=== PATIENT | male | born 1975 | race American Indian/Alaskan Native ===

== ENCOUNTER 2018-08-30 17:36 | Emergency (ER) | payer MEDICAID, OTHER ==
[2018-08-30] MEDS ORDERED: Albuterol-Ipratrop 3 mg / 0.5 (3 ml) UD ONE ×2 (17:59→18:00)
[2018-08-30] MEDS ORDERED: Albuterol-Ipratrop 3 mg / 0.5 (3 ml) UD INH STA (17:59)
--- NOTE | 2018-08-30 18:09 | ED PDOC ---
HPI: SOB/CHF/COPD Time Seen by Provider: 08/30/18 17:52 Chief Complaint (Nursing): Respiratory Distress Chief Complaint (Provider): Respiratory Distress History Per: Patient History/Exam Limitations: no limitations Onset/Duration Of Symptoms: Hrs (x1) Current Symptoms Are (Timing): Still Present Additional Complaint(s): 43 y/o male with a PMHx of Asthma presents to the ED for evaluation of shortness of breath, onset one hour prior to arrival. [place] shortness of breath and chest tightness consistent with prior asthma exacerbation. Patient states he does not have an albuterol pump because he ran out. Patient additionally reports of having a dry cough. Patient notes of having a URI two weeks ago of which symptoms have resolved. Patient states shortness of breath is typically triggered by bad wea ther and/or infection. Otherwise, patient denies any fever. PMD: NO PROVIDER Past Medical History Reviewed: Historical Data, Nursing Documentation, Vital Signs - Medical History PMH: Asthma, Back Problems, HTN Denies: Chronic Kidney Disease - Surgical History Surgical History: No Surg Hx - Family History Family History: States: Diabetes, Hypertension - Social History Current smoker - smoking cessation education provided: Yes Alcohol: None Drugs: Denies - Immunization History Hx Tetanus Toxoid Vaccination: No Hx Influenza Vaccination: No Hx Pneumococcal Vaccination: No - Home Medications Home Medications: Ambulatory Orders Medication Instructions Recorded Guaifen/Dextromethorphan/PE 1 each PO Q6 #20 tablet 04/12/18 [Mucinex Fast-Max Congest-Cough] Albuterol HFA [Ventolin HFA 90 2 puff IH BID #1 inhaler 08/30/18 mcg/actuation (8 g)] Azithromycin 1 tab PO DAILY #4 tab 08/30/18 amLODIPine [Norvasc] 5 mg PO DAILY #30 tab 08/30/18 - Allergies Allergies/Adverse Reactions: Allergies Allergy/AdvReac Type Severity Reaction Status Date / Time acetaminophen Allergy Intermediate RASH Verified 08/22/18 16:13 aspirin Allergy RASH Verified 08/22/18 16:13 ibuprofen Allergy RASH Verified 08/22/18 16:13 Review of Systems ROS Statement: Except As Marked, All Systems Reviewed And Found Negative ( PER HPI) Constitutional: Negative for: Fever Respiratory: Positive for: Cough, Shortness of Breath Physical Exam - Reviewed Nursing Documentation Reviewed: Yes Vital Signs Reviewed: Yes - Physical Exam Appears: Positive for: Non-toxic, In Acute Distress (Mild respiratory distress) Head Exam: Positive for: ATRAUMATIC, NORMOCEPHALIC Skin: Positive for: Warm, Dry Eye Exam: Positive for: EOMI, PERRL ENT: Negative for: Pharyngeal Erythema, Tonsillar Exudate Neck: Positive for: Painless ROM, Supple Cardiovascular/Chest: Positive for: Regular Rate, Rhythm. Negative for: Murmur Respiratory: Positive for: Wheezing (Diffuse expiratory wheeze but good air movement ). Negative for: Accessory Muscle Use, Rales Gastrointestinal/Abdominal: Positive for: Soft. Negative for: Tenderness Back: Positive for: Normal Inspection. Negative for: Decreased ROM Extremity: Positive for: Normal ROM. Negative for: Deformity Lymphatic: Negative for: Adenopathy Neurologic/Psych: Positive for: Alert. Negative for: Motor/Sensory Deficits - Laboratory Results Result Diagrams: 08/30/18 18:10 08/30/18 18:10 - ECG ECG Rhythm: Positive for: Normal QRS, Normal ST Segment, Sinus Rhythm Rate: 85 Medical Decision Making Medical Decision Making: Time: 1759 Impression: Asthma Exacerbation Plan: -- EKG -- CMP -- Troponin I -- CBC with Differentials -- CXR Portable -- Duoneb 3mg/0.5mg 3ml (UD) 9ml INH -- IV Insertion -- Peak Flow Pre/Post Tx -- Influenza A B Accession No. : [id number] Patient Name / ID : BASSAM CAMARGO / [id number] Exam Date : 08/30/2018 17:52:06 ( Approved ) Study Comment : Sex / Age : M / 43Y Creator : Adrian Donahue MD Dictator : Adrian Donahue MD Hydrogen Treater : Tests Superintendent : Adrian Donahue MD Approver2 : Report Date : 08/30/2018 18:23:55 My Comment : Date of service: 08/30/2018 HISTORY: sob coughq COMPARISON: Chest radiograph dated 08/05/2016 FINDINGS: LUNGS: Left lower lung opacity.. PLEURA: No significant pleural effusion identified, no pneumothorax apparent. CARDIOVASCULAR: No aortic atherosclerotic calcification present. Normal cardiac size. No pulmonary vascular congestion. OSSEOUS STRUCTURES: No significant abnormalities. VISUALIZED UPPER ABDOMEN: Normal. OTHER FINDINGS: None. IMPRESSION: Left lower lung infiltrate. 7p On reeval pt is sleeping comfortably in no distress with normal O2 sat. Labs demonstrate no clinical abnormalities. Stable for dc. Dose of antiobiotic given in ER. Scribe Attestation: Documented by Dinesh Plunkett, acting as a scribe for Alexa Bhatia MD. Provider Scribe Attestation: All medical record entries made by the Scribe were at my direction and personally dictated by me. I have reviewed the chart and agree that the record a ccurately reflects my personal performance of the history, physical exam, medical decision making, and the department course for this patient. I have also personally directed, reviewed, and agree with the discharge instructions and disposition. Disposition - Clinical Impression Clinical Impression: Asthma exacerbation, Pneumonia Counseled Patient/Family Regarding: Studies Performed, Diagnosis, Need For Followup, Rx Given - Disposition Referrals: [facility] [place] [Outside] (FOLLOW UP WITH CLINIC IN 1-2 DAYS FOR REEVALUATION) Disposition: Routine/Home Disposition Time: 19:00 Condition: STABLE Prescriptions: Albuterol HFA [Ventolin HFA 90 mcg/actuation (8 g)] 2 puff IH BID #1 inhaler amLODIPine [Norvasc] 5 mg PO DAILY #30 tab RX: Azithromycin 1 tab PO DAILY #4 tab Instructions: Asthma, Adult (DC), Pneumonia, Adult (DC) Forms: [facility] ED School/Work Excuse
--- NOTE | 2018-08-30 18:27 | RAD ---
Date of service: 08/30/2018 HISTORY: sob coughq COMPARISON: Chest radiograph dated 08/05/2016 FINDINGS: LUNGS: Left lower lung opacity.. PLEURA: No significant pleural effusion identified, no pneumothorax apparent. CARDIOVASCULAR: No aortic atherosclerotic calcification present. Normal cardiac size. No pulmonary vascular congestion. OSSEOUS STRUCTURES: No significant abnormalities. VISUALIZED UPPER ABDOMEN: Normal. OTHER FINDINGS: None. IMPRESSION: Left lower lung infiltrate.
[2018-08-30 18:29] LABS: BASO % 0.8 % (0.0-2.0); EOS # 0.7 K/uL (0.0-0.7); HEMOGLOBIN 12.5 g/dL (12.0-18.0); MEAN CELL VOLUME 92.9 fl (80.0-94.0); MEAN CORPUSCULAR HEMOGLOBIN 30.8 pg (27.0-31.0); MEAN CORPUSCULAR HGB CONC 33.1 g/dL (33.0-37.0); MEAN PLATELET VOLUME 7.2 fl (7.2-11.7); MONO # 0.7 K/uL (0.0-0.8); MONO % 11.7 % (0.0-10.0); NEUT # 2.3 K/uL (1.8-7.0); NEUT % 40.5 % (50.0-75.0); NRBC % 0.1 % (0.0-0.0); RBC 4.06 Mil/uL (4.40-5.90); RED CELL DISTRIBUTION WIDTH 12.3 % (11.5-14.5); WHITE BLOOD COUNT 5.7 K/uL (4.8-10.8)
[2018-08-30 18:36] LABS: ALB/GLOB RATIO 1.1 (1.0-2.1); ALBUMIN 4.1 g/dL (3.5-5.0); ALT/SGPT 18 U/L (21-72); AST/SGOT 43 U/L (17-59); BLOOD UREA NITROGEN 21 mg/dl (9-20); CALCIUM 9.6 mg/dL (8.4-10.2); GFR NON-AFRICAN AMERICAN > 60
[2018-08-30] MEDS ORDERED: Azithromycin 500 MG in Sodium Chloride 0.9% 250 ML IVPB STA (19:09)
[2018-08-30] MEDS ORDERED: cefTRIAXone (Rocephin) 1 gm Inj ONE (19:22)
[2018-08-30 19:36] VITALS: BP 135/75; RESP 18; TEMP 98.5; O2SAT 99
[2018-08-30 19:54] VITALS: PULSE 85
--- NOTE | 2018-08-31 07:51 | CARD ---
APPROVED REPORT Date of service: 08/30/2018 EKG Measurement Heart [id number] <Conclusion> Sinus rhythm with occasional premature ventricular complexes Otherwise normal ECG
== END 2018-08-30 21:03 | disposition home or self-care (01) ==
LOC: H.ER 17:36
DX: J45.901 Unspecified asthma with (acute) exacerbation (principal); J18.9 Pneumonia, unspecified organism; F17.200 Nicotine dependence, unspecified, uncomplicated; I10 Essential (primary) hypertension; J44.0 Chronic obstructive pulmonary disease with (acute) lower respiratory infection; Z79.899 Other long term (current) drug therapy
CPT/HCPCS: 71045; 80053; 84484; 85025; 87040; 87804; 93005; 96360; 99284; J0696

== ENCOUNTER 2018-10-04 00:49 | Emergency (ER) | payer OTHER ==
[2018-10-04] MEDS ORDERED: Albuterol-Ipratrop 3 mg / 0.5 (3 ml) UD ONE (01:18)
[2018-10-04] MEDS ORDERED: Albuterol-Ipratrop 3 mg / 0.5 (3 ml) UD INH STA (01:22)
--- NOTE | 2018-10-04 01:48 | ED PDOC ---
HPI: SOB/CHF/COPD Time Seen by Provider: 10/04/18 01:08 Chief Complaint (Nursing): Respiratory Distress Chief Complaint (Provider): shortness of breath History Per: Patient History/Exam Limitations: no limitations Onset/Duration Of Symptoms: Hrs (1) Current Symptoms Are (Timing): Still Present Initiating Event: Out Of Medications Quality: Tightness Current Respiratory Medications: See Home Med List Severity: Moderate Additional Complaint(s): Patient is a 43 year old AA male with PMHx HTN and asthma who states he is whezing and feeling "tightness" for past 1 hour. He reports he has run out of his medications and needs RX. Past Medical History Reviewed: Historical Data, Nursing Documentation, Vital Signs Vital Signs: Last Vital Signs Temp 98.7 F 10/04/18 01:02 Pulse 65 10/04/18 01:02 Resp 18 10/04/18 01:20 BP Pulse Ox 91 L 10/04/18 01:20 - Medical History PMH: Asthma, Back Problems, HTN Denies: Chronic Kidney Disease - Family History Family History: States: Unknown Family Hx, Diabetes, Hypertension - Living Arrangements Living Arrangements: Other (undomiciled) - Social History Current smoker - smoking cessation education provided: Yes (6 cigarettes daily) - Immunization History Hx Tetanus Toxoid Vaccination: No Hx Influenza Vaccination: No Hx Pneumococcal Vaccination: No - Home Medications Home Medications: Ambulatory Orders Medication Instructions Recorded Guaifen/Dextromethorphan/PE 1 each PO Q6 #20 tablet 04/12/18 [Mucinex Fast-Max Congest-Cough] Albuterol HFA [Ventolin HFA 90 2 puff IH BID #1 inhaler 08/30/18 mcg/actuation (8 g)] Azithromycin 1 tab PO DAILY #4 tab 08/30/18 amLODIPine [Norvasc] 5 mg PO DAILY #30 tab 08/30/18 Albuterol HFA [Ventolin HFA 90 2 puff IH [id number] #1 puff 09/06/18 mcg/actuation (8 g)] Prednisone [Deltasone] 20 mg PO DAILY #5 tablet 09/06/18 Albuterol Sulfate [Proair Hfa] 0.09 mg IH Q6 PRN #1 inh 10/04/18 predniSONE [predniSONE Tab] 60 mg PO QAM #12 tab 10/04/18 - Allergies Allergies/Adverse Reactions: Allergies Allergy/AdvReac Type Severity Reaction Status Date / Time acetaminophen Allergy Intermediate RASH Verified 08/22/18 16:13 aspirin Allergy RASH Verified 08/22/18 16:13 ibuprofen Allergy RASH Verified 08/22/18 16:13 Review of Systems ROS Statement: Except As Marked, All Systems Reviewed And Found Negative Respiratory: Positive for: Shortness of Breath, Wheezing Physical Exam - Reviewed Nursing Documentation Reviewed: Yes Vital Signs Reviewed: Yes - Physical Exam Appears: Positive for: Uncomfortable Head Exam: Positive for: ATRAUMATIC, NORMOCEPHALIC Skin: Positive for: Normal Color, Warm, Dry Eye Exam: Positive for: Normal appearance, EOMI, PERRL ENT: Positive for: Normal ENT Inspection Neck: Positive for: Normal, Painless ROM, Supple Cardiovascular/Chest: Positive for: Regular Rate, Rhythm. Negative for: Edema, Murmur Respiratory: Positive for: Decreased Breath Sounds, Wheezing (B/L diffuse expiratory wheezing with diminshed AE) Gastrointestinal/Abdominal: Positive for: Normal Exam, Bowel Sounds, Soft. Negative for: Tenderness Back: Positive for: Normal Inspection. Negative for: L CVA Tenderness, R CVA Tenderness Extremity: Positive for: Normal ROM. Negative for: Tenderness, Pedal Edema Neurological/Psych: Positive for: Awake, Alert, Oriented. Negative for: Motor/Sensory Deficits - ECG O2 Sat by Pulse Oximetry: 91 Medical Decision Making Medical Decision Makin43 year old male with asthma exacerbation Trial of Duonebs and Prednisone 2:45AM Patient reports marked improvement in symptoms and is stable for discharge Dx Asthma Exacerbation Disposition - Clinical Impression Clinical Impression: Asthma exacerbation - Disposition Disposition: Routine/Home Disposition Time: 02:54 Condition: STABLE Prescriptions: Albuterol Sulfate [Proair Hfa] 0.09 mg IH Q6 PRN #1 inh PRN Reason: Shortness Of Breath predniSONE [predniSONE Tab] 60 mg PO QAM #12 tab Instructions: Asthma in Adults Forms: [facility] (Nepali)
[2018-10-04 03:52] VITALS: BP 136/79; PULSE 86; RESP 16; TEMP 98; O2SAT 96
--- NOTE | 2018-10-04 10:19 | CARD ---
APPROVED REPORT Date of service: 10/04/2018 EKG Measurement Heart [id number] <Conclusion> Normal sinus rhythm Normal ECG
== END 2018-10-04 03:52 | disposition home or self-care (01) ==
LOC: H.ER 00:49
DX: J45.901 Unspecified asthma with (acute) exacerbation (principal); F17.210 Nicotine dependence, cigarettes, uncomplicated; J44.9 Chronic obstructive pulmonary disease, unspecified; I10 Essential (primary) hypertension; Z79.899 Other long term (current) drug therapy